=== PATIENT | female | born 1950 | race Caucasian/White ===

== ENCOUNTER 2016-10-04 10:57 | Inpatient (IN) | payer OTHER ==
[~2016-10-04] VITALS: Ht 157.5 cm; Wt 96.5 kg
[2016-10-04 12:27] LABS: HEMATOCRIT 37.9 % (36.0-46.0); MCH 29.6 PG (29.0-34.0); MCHC 33.2 G/DL (30.0-36.0); MCV 89.2 FL (83-99); MEAN PLAT.VOLUME 9.3 uM^3 (9.5-12.4); PLATELET COUNT 403 K/uL (156-360); RBC DIS.WIDTH-CV 14.2 % (11.8-14.6); RBC DIS.WIDTH-SD 46.1 % (39-53); RED BLOOD COUNT 4.25 M/uL (3.80-5.20); WHITE BLOOD COUNT 7.6 K/uL (4.1-10.2)
[2016-10-04 12:37] LABS: CHLORIDE 103 mEq/L (99-109); SODIUM 136 mEq/L (136-147)
[2016-10-04 12:40] LABS: GLUCOSE 116 mg/dL (70-99)
[2016-10-04 12:41] LABS: ANION GAP 11 MEQ/L (2-14)
[2016-10-04 12:42] LABS: TOTAL BILIRUBIN 0.4 mg/dL (0.0-1.0)
[2016-10-04 12:43] LABS: ALKALINE PHOSPHATASE 67 IU/L (3-129); GFR ESTIMATE (CALCULATED) > 59 mL/min/
[2016-10-04 12:44] LABS: UREA NITROGEN (BUN) 14 mg/dL (9-23)
[2016-10-04 12:49] LABS: TROP-I INTERPRETATION NEGATIVE; TROPONIN-I < 0.01 ng/mL (0.0-0.30)
[2016-10-04] MEDS ORDERED: BUSPAR5 MG PO (15:56)
[2016-10-04] MEDS ORDERED: GUAIFEN-CODEINE5 ML PO (15:59)
[2016-10-04] MEDS ORDERED: ADVIL,NUPRIN,M200 MG PO (16:01)
[2016-10-04] MEDS ORDERED: PULMICORT FLE180 MCG IH (16:02)
[2016-10-04] MEDS ORDERED: DUONEB 2.5-0.5 M3 ML AEROSOL (16:02)
[2016-10-04] MEDS ORDERED: VENTOLIN HFA18 GM IH (16:04)
[2016-10-04] MEDS ORDERED: AUGMENTIN875 MG PO (16:04)
[2016-10-04] MEDS ORDERED: DELTASONE20 M1 PO (16:08)
[2016-10-04] MEDS ORDERED: OMEPRAZOLE40 M1 PO (16:09)
[2016-10-04] MEDS ORDERED: BENTYL10 MG PO (16:10)
[2016-10-04] MEDS ORDERED: ZESTORETIC 20-1 EAC1 PO (16:10)
[2016-10-04] MEDS ORDERED: ZANTAC150 MG PO (16:11)
[2016-10-04 17:15] VITALS: BP 150/70
[2016-10-04 19:54] VITALS: BP 134/60
[2016-10-04 23:53] VITALS: BP 117/59
[2016-10-05 03:46] VITALS: BP 120/60
[2016-10-05 07:10] VITALS: BP 117/81
[2016-10-05 10:27] LABS: INTERNAL CONTROL VALID? YES
[2016-10-05 12:07] VITALS: BP 122/64
[2016-10-05 16:08] VITALS: BP 136/76
[2016-10-05 19:36] VITALS: BP 125/65
[2016-10-05 23:53] VITALS: BP 129/69
[2016-10-06 07:10] VITALS: BP 134/71
[2016-10-06 15:25] VITALS: BP 127/62
[2016-10-06 23:46] VITALS: BP 128/67
[2016-10-07 07:10] VITALS: BP 122/67
[2016-10-07 07:18] LABS: EOSINOPHIL (%) 0 % (0-5); HEMATOCRIT 37.8 % (36.0-46.0); IMMATURE GRANULOCYTE (%) 0.7 % (0.0-0.7); IMMATURE GRANULOCYTE COUNT 0.1 K/uL; INSTRUMENT ABS NEUTROPHIL CT 12.5 K/uL; LYMPHOCYTE COUNT 1.1 K/uL (1.0-2.8); MCH 29.2 PG (29.0-34.0); MCHC 32.5 G/DL (30.0-36.0); MCV 89.8 FL (83-99); MEAN PLAT.VOLUME 9.4 uM^3 (9.5-12.4); MONOCYTE (%) 3.5 % (3-12); MONOCYTE COUNT 0.5 K/uL (0-0.8); NEUTROPHIL (%) 87.9 % (45-76); NEUTROPHIL COUNT 12.5 K/uL (1.8-6.4); PLATELET COUNT 493 K/uL (156-360); RBC DIS.WIDTH-CV 14.2 % (11.8-14.6); RBC DIS.WIDTH-SD 46.7 % (39-53); RED BLOOD COUNT 4.21 M/uL (3.80-5.20); WHITE BLOOD COUNT 14.2 K/uL (4.1-10.2)
[2016-10-07 07:51] LABS: ANION GAP 11 MEQ/L (2-14); CHLORIDE 101 MEQ/L (99-109); GFR ESTIMATE (CALCULATED) > 59 mL/min/; GLUCOSE 133 mg/dL (70-99); POTASSIUM 4.1 MEQ/L (3.7-5.4); SAMPLE HEMOLYSIS CHECK 0; SAMPLE ICTERIC CHECK 0; SAMPLE LIPEMIA CHECK 0; SODIUM 137 MEQ/L (136-147); UREA NITROGEN (BUN) 20 mg/dL (9-23)
[2016-10-07 15:20] VITALS: BP 136/67
[2016-10-07 23:33] VITALS: BP 134/72
[2016-10-08 05:20] LABS: EOSINOPHIL (%) 0 % (0-5); HEMATOCRIT 35.8 % (36.0-46.0); IMMATURE GRANULOCYTE (%) 1.3 % (0.0-0.7); IMMATURE GRANULOCYTE COUNT 0.2 K/uL; INSTRUMENT ABS NEUTROPHIL CT 11.4 K/uL; LYMPHOCYTE COUNT 0.9 K/uL (1.0-2.8); MCH 29.7 PG (29.0-34.0); MCHC 33.2 G/DL (30.0-36.0); MCV 89.3 FL (83-99); MEAN PLAT.VOLUME 9.5 uM^3 (9.5-12.4); MONOCYTE (%) 3.5 % (3-12); MONOCYTE COUNT 0.5 K/uL (0-0.8); NEUTROPHIL COUNT 11.4 K/uL (1.8-6.4); PLATELET COUNT 442 K/uL (156-360); RBC DIS.WIDTH-CV 14.1 % (11.8-14.6); RED BLOOD COUNT 4.01 M/uL (3.80-5.20); WHITE BLOOD COUNT 12.9 K/uL (4.1-10.2)
[2016-10-08 05:46] LABS: ANION GAP 11 MEQ/L (2-14); CHLORIDE 101 MEQ/L (99-109); GFR ESTIMATE (CALCULATED) > 59 mL/min/; GLUCOSE 148 mg/dL (70-99); POTASSIUM 4.4 MEQ/L (3.7-5.4); SAMPLE HEMOLYSIS CHECK 0; SAMPLE ICTERIC CHECK 0; SAMPLE LIPEMIA CHECK 0; SODIUM 136 MEQ/L (136-147); UREA NITROGEN (BUN) 23 mg/dL (9-23)
[2016-10-08 07:15] VITALS: BP 133/66
[2016-10-08] MEDS ORDERED: DELTASONE20 M1 PO (13:47)
[2016-10-08] MEDS ORDERED: CEFTIN500 MG PO (13:48)
== END 2016-10-08 14:40 | disposition home or self-care (01) | DRG 195 ==
LOC: EME 10:57 → 2EAST 14:45 → EDOF 14:45 → ENRESERV 14:47 → 2EAST 17:03
PROVIDERS: Emergency Medicine; Internal Medicine; Student in an Organized Health Care Education/Training Program
DX: J18.9 Pneumonia, unspecified organism (principal); J98.01 Acute bronchospasm; R09.02 Hypoxemia; I10 Essential (primary) hypertension; K21.9 Gastro-esophageal reflux disease without esophagitis; F41.9 Anxiety disorder, unspecified; Z88.1 Allergy status to other antibiotic agents
CPT/HCPCS: 71010; 71020; 71275; 80048; 80053; 83605; 83880; 84484; 85025; 85027; 87040; 87070; 87205; 87449; 93005; 94640; 94640 76; 94799; 99202; 99281; 99285; J0456; J0696; J1644; J2920; J7030; J7050